=== PATIENT | female | born 1955 | race Caucasian/White ===

== ENCOUNTER → 2018-10-12 | Outpatient (CLI) | payer OTHER | END | disposition home or self-care (01) | LOC: CFH 08:19 | PROVIDERS: ATTEND Internal Medicine Cardiovascular Disease | DX: R00.1 Bradycardia, unspecified (principal); I10 Essential (primary) hypertension | CPT/HCPCS: 78452; 93017; A9502 ==

== ENCOUNTER → 2018-11-30 | Outpatient (CLI) | payer OTHER | END | disposition home or self-care (01) | LOC: CFH 14:32 | PROVIDERS: ATTEND Physician Assistant | DX: I08.1 Rheumatic disorders of both mitral and tricuspid valves (principal); I10 Essential (primary) hypertension; E78.5 Hyperlipidemia, unspecified; R00.1 Bradycardia, unspecified; Z87.891 Personal history of nicotine dependence | CPT/HCPCS: 93306 ==

== ENCOUNTER → 2019-03-22 | Outpatient (CLI) | payer OTHER | END | disposition home or self-care (01) | LOC: CVU 07:37 | PROVIDERS: ATTEND Internal Medicine Cardiovascular Disease | DX: I65.23 Occlusion and stenosis of bilateral carotid arteries (principal); J44.9 Chronic obstructive pulmonary disease, unspecified; I10 Essential (primary) hypertension; E78.5 Hyperlipidemia, unspecified | CPT/HCPCS: 93880 ==

== ENCOUNTER 2019-03-27 10:12 | Observation (INO) | payer OTHER ==
[~2019-03-27] VITALS: Ht 165.1 cm; Wt 88.8 kg
[2019-03-27] MEDS ORDERED: SODIUM CHLORIDE 0.9% 1,000 ML IV SCH (10:35)
[2019-03-27 10:39] VITALS: BP 142/78
[2019-03-27] MEDS ORDERED: LOVA40TA2 PO (10:55)
[2019-03-27] MEDS ORDERED: BIOTIN PO (10:55)
[2019-03-27] MEDS ORDERED: TETRACYCLINE PO (10:55)
[2019-03-27] MEDS ORDERED: AMLO1CAP6 PO (10:55)
[2019-03-27] MEDS ORDERED: ASPI81TA45 PO (10:55)
[2019-03-27] MEDS ORDERED: CEFAZOLIN PMX 1GM/50ML 50 ML IVPB ONE ×2 (11:00)
[2019-03-27] MEDS ORDERED: LIDOCAINE 1%, 20ML ONE (11:12)
[2019-03-27] MEDS ORDERED: FENTANYL PF 250 MCG/5ML ONE (11:12)
[2019-03-27] MEDS ORDERED: MIDAZOLAM 1 MG/ML, 5ML ONE (11:12)
[2019-03-27] MEDS ORDERED: CEFAZOLIN PMX 1GM/50ML 50 ML ONE (11:12)
[2019-03-27] MEDS ORDERED: CEFAZOLIN 1,000 MG ONE (11:13)
[2019-03-27] MEDS ORDERED: ONDANSETRON 2MG/ML, 2ML IV PRN (12:30)
[2019-03-27] MEDS ORDERED: HOLD MEDICATION MC PRN (12:30)
[2019-03-27] MEDS ORDERED: ZOLPIDEM 5MG TABLET PO PRN (12:30)
[2019-03-27 13:47] VITALS: BP 158/92
[2019-03-27] MEDS: HYDROcodone/APAP 5/325 TABLET PO PRN ×3 (13:53→21:32)
[2019-03-27 19:03] VITALS: BP 123/81
[2019-03-27] MEDS: CEFAZOLIN PMX 1GM/50ML 50 ML IVPB SCH (19:40)
[2019-03-28 00:14] VITALS: BP 132/76
[2019-03-28] MEDS: HYDROcodone/APAP 5/325 TABLET PO PRN ×2 (01:39→06:02)
[2019-03-28] MEDS: SODIUM CHLORIDE FLUSH 10ML SYR IVF SCH ×2 (03:29→08:31)
[2019-03-28] MEDS: CEFAZOLIN PMX 1GM/50ML 50 ML IVPB SCH ×2 (03:29→10:54)
[2019-03-28 07:21] VITALS: BP 158/84
[2019-03-28] MEDS ORDERED: ASPIRIN 81 MG TABLET EC PO SCH (09:00)
[2019-03-28] MEDS ORDERED: BENAZEPRIL 20 MG TABLET PO SCH (09:00)
[2019-03-28] MEDS ORDERED: LOVASTATIN 40 MG TABLET PO SCH (09:00)
[2019-03-28] MEDS ORDERED: AMLODIPINE 5 MG TABLET PO SCH (09:00)
== END 2019-03-28 12:15 | disposition home or self-care (01) ==
LOC: OUT 10:12 → EDSTATUS 11:45 → 5SO 12:24 → OUT 12:24 → 5SO 12:53 → DCLOUNGE 03-28 12:00
PROVIDERS: ADMIT Internal Medicine Cardiovascular Disease; ATTEND Internal Medicine Cardiovascular Disease
DX: I45.5 Other specified heart block (principal); R00.1 Bradycardia, unspecified; I10 Essential (primary) hypertension; Z79.899 Other long term (current) drug therapy
CPT/HCPCS: 33208; 71045; 93005; 96365; 96366; 99156; 99157; C1779; C1785; C1892; G0378; J0690; J2250; J3010; J3490; J7030